=== PATIENT | female | born 1950 | race Caucasian/White ===

== ENCOUNTER 2016-09-21 13:08 | Outpatient (CLI) | payer OTHER ==
--- NOTE | 2016-09-21 14:16 | DIAGNOSTIC IMAGING REPORT ---
PROCEDURE: DEXA BONE DENSITY STUDY CLINICAL INDICATION: SCREENING COMPARISON: None. FINDINGS: LUMBAR SPINE: Bone mineral density 0.828, T-score -2.0, osteopenia kim LEFT HIP: Bone mineral density 0.772, T-score -1.4, osteopenia LEFT FEMORAL NECK: Bone mineral density 0.687, T-score -1.5, osteopenia (T score greater or equal to -1.0 to: NORMAL) (T score from -1.1 to -2.4: OSTEOPENIA) (T score ess than or equal to -2.5: OSTEOPOROSIS) IMPRESSION: 1. Lumbar spine and left hip and osteopenia 2. 10-year fracture risk: Major osteoporotic fracture 15%, hip fracture 2.0%.
[2016-12-16] MEDS ORDERED: LEVOTHYROXINE100 MCG PO (15:15)
[2016-12-16] MEDS ORDERED: METHOTREXATE PO (15:18)
== END 2016-09-21 23:00 ==
LOC: XR SRH 13:08
DX: Z78.0 Asymptomatic menopausal state (principal); Z13.820 Encounter for screening for osteoporosis; M85.88 Other specified disorders of bone density and structure, other site

== ENCOUNTER 2016-12-22 08:13 | Outpatient (CLI) | payer OTHER, MEDICARE ==
[~2016-12-22 08:13] MED LIST: LEVOTHYROXINE100 MCG PO; METHOTREXATE PO
--- NOTE | 2016-12-22 10:27 | DIAGNOSTIC IMAGING REPORT ---
PROCEDURE: ABDOMEN/PELVIS WITH CONTRAST CLINICAL INDICATION: COLON CA TECHNIQUE: 125 ml of Isovue 300 were injected intravenously and axial images were obtained of the abdomen and pelvis with sagittal and coronal reformations. COMPARISON: None. FINDINGS: ABDOMEN: Partially imaged calcified right breast implant. Mild diffuse cardiomegaly. Clear lung bases. No hiatal hernia. Multiple coarse punctate calcifications are seen throughout the spleen. No discrete liver masses. Decompressed gallbladder. Normal adrenal glands, kidneys, and pancreas. Normal caliber retroperitoneal vessels and ureters. No retroperitoneal adenopathy. The stomach, small bowel loops, appendix, and mesentery are normal. No adenopathy. Moderate amount of stool in the transverse colon and proximal colon. No pericolonic inflammation or bulky adenopathy. PELVIS: In the proximal rectum, there is eccentric wall thickening approximately 9.5 cm from the anus. No pathologically enlarged lymph nodes or significant perirectal fat stranding. In the midsigmoid, reportedly the site of the second suspicious mass on colonoscopy, no visible mass by CT. The sigmoid colon is intermittently decompressed. No kim sigmoid inflammation or mesenteric adenopathy. The uterus, ovaries, urinary bladder, and pelvic vessels are normal. No free fluid, or pelvic mass. Surgical fixation of prior pubic fracture. Disc endplate changes in the lower lumbar spine, grade 1 retrolisthesis L2 on three, degenerative changes at both sacroiliac joints and partial image deformity of the left proximal femoral diaphysis. No suspicious osseous lesions. IMPRESSION: 1. Eccentric wall thickening in the proximal rectum may represent one of the suspicious findings by colonoscopy. No adjacent adenopathy or fat stranding to suggest tumor spread. 2. Sigmoid mass was not well seen by CT. 3. No evidence of distant metastasis. 4. Evidence of granulomatous disease in the spleen. 5. Evidence of prior left femur and pelvic trauma with fixation and healing. 6. Discussed with Dr. Winters. All CT scans at this facility use dose modulation, iterative reconstruction, and/or weight-based dosing when appropriate to reduce radiation dose to as low as reasonably achievable.
--- NOTE | 2016-12-22 10:56 | DIAGNOSTIC IMAGING REPORT ---
PROCEDURE: XR CHEST 2 VIEW INDICATION: COLON CA TECHNIQUE: Two views. COMPARISON: None. FINDINGS: The cardiomediastinal contour and central vasculature are within normal limits. There is mild scarring at the right lung base and the faint projection of the calcified right breast implant. The lungs are clear without focal consolidation, pleural effusion, or pneumothorax. The visualized osseous structures are intact. There are surgical changes in the midline upper mediastinum. IMPRESSION: 1. No acute process. 2. Surgical changes of prior thyroid surgery.
== END 2016-12-22 23:00 ==
LOC: XR SRH 08:13 → CT SRH 09:30 → XR SRH 23:00
DX: C18.9 Malignant neoplasm of colon, unspecified (principal); R91.8 Other nonspecific abnormal finding of lung field
CPT/HCPCS: 90074; 91631; 92560; 93005

== ENCOUNTER → 2017-01-07 | Outpatient (CLI) | payer OTHER, MEDICARE ==
[~2017-01-07] MED LIST changes: +HYCET1 ML PO; +METHOTREXATE2.5 MG PO
== END ==
LOC: LAB SRH 07:19
DX: C18.9 Malignant neoplasm of colon, unspecified (principal)
CPT/HCPCS: 90001; 90074; 90100; 90155; 91004; 95059

== ENCOUNTER 2017-01-13 08:55 | Inpatient (IN) | payer OTHER, MEDICARE ==
[2017-01-13] VITALS (7 sets, daily range): BP systolic 121–135; BP diastolic 63–79
[~2017-01-13] VITALS: Ht 166.4 cm; Wt 68.0 kg
[~2017-01-13 08:55] MED LIST changes: -HYCET1 ML PO; -METHOTREXATE2.5 MG PO
--- NOTE | 2017-01-13 15:38 | Operative Report ---
Operative Report Date of Surgery: 01/13/17 Preoperate Diagnosis: adenocarcinoma of the sigmoid; rectal villous adenoma Postoperative Diagnosis: adenocarcinoma of the sigmoid; rectal villous adenoma Surgeon: Ap Winters MD Video Editor Surgeon: Foster Palomnio MD Procedure Performed: Arthroscopic assisted Low anterior resection with primary stapled end-to-end anastomosis Anesthesia: Gen. endotracheal Indications: This 66-year-old female recently underwent screening colonoscopy was noted to have a exophytic lesion at approximately 25 cm from the anal verge this was biopsied extensively pathology showed it was an adenocarcinoma. She was also noted have a large exophytic mass of the rectum which was biopsied extensively pathology reviewed, indicating villous adenoma at approximately 10 cm from the anal verge. FINDINGS: After removing the specimen, the proximal site of the sigmoid, previously biopsied and tattooed with Chasity ink was marked using a suture. The villous adenoma in the rectum was intact with approximate half centimeter margin. Surgical Technique: Patient brought to the operating room. Patient was placed in the dorsal supine position. Patient underwent general endotracheal anesthesia by the anesthesiology department. After proper anesthesia had taken effect patient was placed in low lithotomy. A Norton catheter placed. Patient's abdomen was prepped and draped in a sterile fashion. An infraumbilical incision through the skin and subcutaneous tissue. A varies needle was inserted through this site. After ascertaining its appropriate position with suction irrigation, a pneumoperitoneum was obtained using CO2 insufflation to approximate 14-15 mmHg pressure. Once this pressure was reached, the varies needle was removed and replaced with a 10 mm trocar. The trocar removed leaving the sleeve behind which a laparoscopic video camera was introduced into the abdominal cavity. Under direct visualization a 10 mm trocar was placed in the right lower quadrant , another 10 mm trocar was placed in the right mid abdomen, another 10 mm trocar was placed in the left midabdomen. Each introducer abdominal cavity under direct visualization. The trocar were removed leaving the sleeve behind through which laparoscopic instrumentation was introduced in the abdominal cavity. The aforementioned findings noted. The sigmoid was mobilized from lateral to medial by incising the white line of Toldt using the ThunderBeat this being carried down into the pelvis as well. Both ureters were identified. The site of Chasity ink injection of the sigmoid was identified. Once the sigmoid and the rectum were mobilized, the junction of the descending colon and sigmoid were isolated by incising the mesocolon. ( Making sure we had plenty of margin proximally to our Patti ink tattooing of the sigmoid .) Once the mesocolic window was performed and Endo ANETTE stapler was introduced into the abdominal cavity and the colon transected at that site. The mesocolon was taken down posteriorly down onto the sigmoid vein and artery. Both these structures were clipped in continuity and divided using the Thunder Beat. Using the ThunderBeat, continuing down posteriorly onto the sacrum and the presacral plane and down into the pelvis and onto the rectum. A portion of the mesorectum was taken down as well as the rectal peritoneum reflection as far possible into the pelvis. The Endo ANETTE Railial reload stapler was then passed back into the abdomen and placed across the rectum deep into the pelvis. The rectum was then divided using the Endo ANETTE Radial stapler. The rectosigmoid was freed. A small infraumbilical incision made and carried out to skin and subcutaneous tissue. The peritoneal cavity was entered and the pneumoperitoneum released. The rectosigmoid specimen was retrieved from the abdominal cavity and sent to pathology. The descending colon was brought up through our incision and a pursestring device was placed proximal to our staple line. Using 0 Maxon, a pursestring was created, the staple line was transected. The colotomy was then dilated to 25 mm. The 28 mm endo-EEA stapler anvil was placed within the colotomy and the pursestring suture tied. The descending colon and placed anvil was allowed to return to its normal anatomical position within the abdomen The infra umbilical midline incision was closed using #1 PDS. Subcutaneous tissue was irrigated and a moist sponge was placed within the wound. The pneumoperitoneum was reestablished. The laparoscope was placed within the abdominal cavity once again. It was at this point that Dr. Palomino went below and dilated the rectal stump to 31 mm. The endo-EEA stapler was then passed and the spike extruded. The descending colon/anvil were manipulated and the anvil and spike were connected, the EEA stapler closed and fired. The endo-EEA stapler was then removed and inspected there were 2 concentric formed rings of colon and rectum identified and intact. The rectum was then insufflated with air from below while the staple line was submerged beneath a pool of normal saline. No leak identified. Hemostasis was assured within the abdominal cavity, the pneumoperitoneum was released. All trochars removed and the abdominal cavity. The infraumbilical midline incision was closed using running 4-0 Polysorb suture. All trocar sites were approximated using interrupted 4-0 Polysorb subcuticular suture as well. Sterile pressure occlusive dressings were placed over each wound. The patient was extubated. Transferred to the recovery room. There were no intraoperative or anesthetic complications. CONDITION: Stable to postoperative anesthesia recovery room COMPLICATIONS: None ESTIMATED BLOOD LOSS: Minimal FLUIDS:: 1300 cc lactated Ringer's DRAINS/PACKING: None SPECIMEN: Rectosigmoid
[2017-01-14 03:50] VITALS: BP 122/84
[2017-01-14 06:22] VITALS: BP 132/73
--- NOTE | 2017-01-14 06:39 | Progress Note ---
Subjective General 66-year-old female postop day #1 status post low anterior resection for sigmoid adenocarcinoma and tubular villous adenoma in the rectum. Awake, alert, conversant. Ambulatory. Incisional soreness, as expected. No shortness of breath or chest pain. Physical Exam Vital Signs / I&Os Vital Signs Date Time Temp Pulse Resp B/P Pulse O2 O2 Flow FiO2 Ox Delivery Rate 01/14 0622 98.8 73 18 132/73 100 Nasal 2.0 Cannula I&O 01/13 0800 01/13 1600 01/14 0000 Intake Total 2805 0 Output Total 1105 600 Balance 1700 -600 General Appearance Alert, Oriented X3, Cooperative, No acute distress HEENT PERRLA, EOMI, Moist mucous membranes Lungs Clear to auscultation Cardiovascular Regular rate and rhythm Abdomen Normal bowel sounds, dressings dry and intact Extremities No cyanosis, No clubbing, No edema Skin warm and dry Neurological No lateralizing signs Psych/Mental Status Mood normal Assessment and Plan Problem List 1. STATUS POST LAPAROSCOPICALLY ASSISTED LOW ANTERIOR RESECTION Plan Stable postop day 1. JEROME Norton. Start home meds and sips of water. Continue present management
[2017-01-14 10:15] VITALS: BP 125/54
[2017-01-14 14:37] VITALS: BP 125/58
[2017-01-14 18:35] VITALS: BP 129/74
[2017-01-14 22:04] VITALS: BP 127/56
[2017-01-15 02:32] VITALS: BP 135/69
[2017-01-15 07:41] VITALS: BP 122/62
--- NOTE | 2017-01-15 08:42 | Progress Note ---
Subjective General 66-year-old female postop day 2, laparoscopically-assisted low anterior resection for adenocarcinoma, sigmoid and tubulovillous adenoma of the rectum. Patient is ambulatory. Patient states she is passing flatus. No nausea. No shortness of breath or chest pain. Sore at trocar sites but states she is doing well. Physical Exam Vital Signs / I&Os Vital Signs Date Time Temp Pulse Resp B/P Pulse O2 O2 Flow FiO2 Ox Delivery Rate 01/15 0831 2.0 / 0741 98.4 81 19 122/62 93 Nasal 2.0 Cannula / 0232 98.8 85 18 135/69 98 Nasal 2.0 Cannula / 2204 98.4 83 18 127/56 99 Nasal 2.0 Cannula / 1835 98.2 84 18 129/74 96 Room Air 01/14 1437 83 18 125/58 97 Nasal 2.0 Cannula / 1118 2.0 / 1015 98.8 75 18 125/54 98 Nasal 2.0 Cannula I&O / 0800 06/02 1600 / 0000 Intake Total 1441 0 1686 Output Total 4912 723 4279 Balance 191 -925 536 General Appearance Alert, Oriented X3, Cooperative, No acute distress Lungs Clear to auscultation Neck No JVD Cardiovascular Regular rate and rhythm Abdomen Normal bowel sounds, slightly distended, slightly tympanitic. Dressings dry and intact Extremities No cyanosis, No edema Skin warm and dry Neurological No lateralizing signs Psych/Mental Status Mental status normal Assessment and Plan Problem List 1. STATUS POST LAPAROSCOPICALLY ASSISTED LOW ANTERIOR RESECTION Plan Postoperative day #2 , laparoscopically assisted low anterior resection. Stable. Continue present management. She will start her methotrexate today.
[2017-01-15] MEDS ORDERED: METHOTREXATE2.5 MG PO (09:04)
[2017-01-15 10:23] VITALS: BP 119/62
[2017-01-15 14:16] VITALS: BP 118/56
[2017-01-15 18:25] VITALS: BP 117/68
[2017-01-16] VITALS (8 sets, daily range): BP systolic 94–134; BP diastolic 56–76
--- NOTE | 2017-01-16 10:05 | Progress Note ---
Subjective General 66-year-old female postop day #3 status post laparoscopically assisted low anterior resection. Minimal incisional discomfort. No shortness of breath or chest pain. He continues to pass flatus. No bowel movement yet. Temperature spike 101 degrees last night. Return to normal with Tylenol. Ambulatory without difficulty. Physical Exam Vital Signs / I&Os Vital Signs Date Time Temp Pulse Resp B/P Pulse O2 O2 Flow FiO2 Ox Delivery Rate 01/16 0627 97.7 84 18 120/57 93 Room Air 01/16 0106 74 16 124/64 95 Room Air 2.0 / 0054 98.1 80 16 118/70 96 Room Air 01/15 1825 98.1 84 20 117/68 95 Room Air 01/15 1626 98.1 01/15 1416 101.3 89 12 118/56 92 Room Air 01/15 1023 99.1 87 19 119/62 95 Room Air I&O 01/15 0800 06/ 1600 01/16 0000 Intake Total 2085 582 7653 Output Total 950 800 800 Balance 364 189 238 General Appearance Alert, Oriented X3, Cooperative, No acute distress HEENT PERRLA, Moist mucous membranes Lungs Clear to auscultation Neck No JVD Cardiovascular Regular rate and rhythm Abdomen Normal bowel sounds, dressing dry and intact Extremities No cyanosis, No clubbing, No edema Skin warm and dry Neurological No lateralizing signs Psych/Mental Status Mental status normal LAB Results Laboratory Tests 01/16 0530 Chemistry Plasma Sodium (136 - 145 mmol/L) 139 Plasma Potassium (3.5 - 5.1 mmol/L) 3.6 Plasma Chloride (98 - 107 mmol/L) 101 CO2 (Enzymatic) (21 - 32 mmol/L) 24 BUN (7 - 18 mg/dL) 12 Creatinine (0.6 - 1.3 mg/dL) 0.6 Est GFR ( Amer) (mL/min) >60 Est GFR (Non-Af Amer) (mL/min) >60 Glucose (70 - 110 mg/dL) 66 Plasma Calcium (8.5 - 10.1 mg/dL) 8.4 Hematology WBC (4.5 - 11.5 K/uL) 7.8 RBC (4.00 - 5.20 M/uL) 3.99 Hgb (12.0 - 16.0 gm/dL) 12.0 Hct (36.0 - 46.0 %) 36.2 MCV (80 - 100 fL) 91 MCH (26 - 34 pg) 30 RDW (11.6 - 14.8 %) 14.8 Neut % (Auto) (50 - 75 %) 70.3 Lymph % (Auto) (25 - 40 %) 19.6 [place] % (Auto) (3 - 14 %) 8.3 Eos % (Auto) (0 - 4 %) 1.5 Baso % (Auto) (0 - 2 %) 0.3 Plt Count, EDTA (150 - 400 K/uL) 186 PUBS MCHC (31 - 37 g/dL) 33 Assessment and Plan Problem List 1. STATUS POST LAPAROSCOPICALLY ASSISTED LOW ANTERIOR RESECTION Plan Stable postop day #3. Will start clear liquid diet. Otherwise, continue present management
[2017-01-17 03:36] VITALS: BP 119/65
[2017-01-17 06:28] VITALS: BP 133/75
[2017-01-17] MEDS ORDERED: HYCET1 ML PO (06:58)
--- NOTE | 2017-01-17 07:00 | Provider's Discharge Care Plan ---
Problem, Goal, Plan Problem List 1. STATUS POST LAPAROSCOPICALLY ASSISTED LOW ANTERIOR RESECTION Goals: Improve disease control, Therapeutic intervention Instructions: Follow up as directed, Increase activity level, Take meds as directed
--- NOTE | 2017-01-17 07:13 | Discharge Summary ---
Discharge Summary Report Admit Date 01/13/17 Discharge Date 01/17/17 Admission Diagnosis Adenocarcinoma, sigmoid and tubulovillous adenoma of the rectum Discharge Diagnosis Adenocarcinoma, sigmoid and tubulovillous adenoma of the rectum. SURGICAL PROCEDURE PERFORMED: Laparoscopic assisted low anterior resection Brief History 56-year-old female who on routine screening colonoscopy was noted to have an exophytic lesion of the sigmoid colon approximately 25 cm from the anal verge and another exudative lesion 10 cm from the anal verge in the rectum. Pathology revealed a lesion of the sigmoid to be a adenocarcinoma, and the lesion in the rectum to be a tubulovillous adenoma. She was scheduled for admission and low anterior resection. Hospital Course She 6-year-old female admitted to [facility]. Patient was taken to the operating room where she underwent uneventful laparoscopic low (low) anterior resection. Postop day 2 was passing flatus. Postop day 3 was started on a clear diet. Postop day 4, was passing flatus and having bowel movements and tolerating a liquid diet. Vital signs remained stable. Ambulatory. Not complaining of any shortness of breath or chest pain. Her incisions were clean with no evidence of cellulitis. She was having minimal abdominal discomfort. Patient was discharged home on postop day 4. General Appearance Alert, Oriented X3, Cooperative, No acute distress HEENT PERRLA, Mucous membran moist/pink Lungs Clear to auscultation Cardiovascular Regular Rate Abdomen Normal bowel sounds, wounds clean with no evidence of ileitis. Skin warm and dry. No evidence of cyanosis Neurological no lateralizing signs Psych/Mental Status Mental status NL Discharge Instructions/Meds Patient was discharged home on a clear liquid diet. Patient was to follow the [facility] in 4 days. Activity level as tolerated. She was discharged on Hycet elixir 1 tablespoon every 6 hours when necessary pain. She was prescribed 8 ounces. She was discharged on her levothyroxine 150 g daily. She was to resume her methotrexate 12.5 mg twice a day on a weekly basis. She was discharged home to self-care. She should have any questions or problems to contact [facility]. All questions answered to the patient's satisfaction.
== END 2017-01-17 10:10 | disposition home or self-care (01) | DRG 330 ==
LOC: OB SRH 08:55 → U SRH 11:15 → CC SRH 16:00 → ACUTE2 SRH 01-16 16:37
PROVIDERS: ADMIT Specialist
PROC: 0DBP0ZZ Excision of Rectum, Open Approach (ICD-10-PCS; principal; 2017-01-13 11:15)
PROC: 0DTN0ZZ Resection of Sigmoid Colon, Open Approach (ICD-10-PCS; principal; 2017-01-13 11:15)
DX: C18.7 Malignant neoplasm of sigmoid colon (principal); C77.2 Secondary and unspecified malignant neoplasm of intra-abdominal lymph nodes; D12.8 Benign neoplasm of rectum; R50.9 Fever, unspecified; M06.9 Rheumatoid arthritis, unspecified; E03.9 Hypothyroidism, unspecified
CPT/HCPCS: 50002; 60001; 70002; 80102; 80182; 80212; 80248; 82319; 82669; 82672; 82723; 82794; 82807; 82897; 83125; 83587; 83767; 83919; 83982; 84038; 84041; 84344; 84514; 84531; 84532; 85241; 90047; 90074; 95059